=== PATIENT | male | born 1925 | race Caucasian/White ===

== ENCOUNTER 2017-06-23 00:27 | Observation (INO) | payer MEDICARE, OTHER ==
[2017-06-23] MEDS ORDERED: Sodium Chloride 0.9% 1000 ML 1,000 ML IV STA (00:55)
--- NOTE | 2017-06-23 01:00 | ERPHSYRPT ---
- History of Present Illness Time Seen by Provider: 06/23/17 00:58 Historian: patient, EMS Exam Limitations: no limitations Patient Subjective Stated Complaint: pt c/o pain in rt abd, cramping in nature that began tonight while pt was in bed. Triage Nursing Assessment: pt alert and oriented, asnwers questions approp. pt arrive per ambulance, transfer to stretcher with assist of 3. respirations nonlabored with lungs cta. abd soft and nontender to light palpation. bowel sounds present in all 4 quads. +3 edema noted to bilat lower legs and feet. Physician History: pt c/o pain in rt abd, cramping in nature that began tonight while pt was in bed. Timing/Duration: today Activities at Onset: none Quality: cramping Abdominal Pain Onset Location: RUQ Pain Radiation: no radiation Severity of Pain-Max: mild Severity of Pain-Current: mild Modifying Factors: Improves With: nothing Associated Symptoms: denies symptoms Allergies/Adverse Reactions: bacitracin [From Neosporin ([id number])] Allergy (Verified 06/23/17 00:44) donepezil [From Aricept] Allergy (Verified 06/23/17 00:44) memantine [From Namenda] Allergy (Verified 06/23/17 00:44) neomycin [From Neosporin ([id number])] Allergy (Verified 06/23/17 00:44) polymyxin B [From Neosporin ([id number])] Allergy (Verified 06/23/17 00:44) Home Medications: Amlodipine Besylate 5 mg [Norvasc 5 mg] 5 mg PO DAILY 06/23/17 [History] Aspirin EC 81 mg [Ecotrin 81 mg] 81 mg PO DAILY 06/23/17 [History] B1,B2,B3,B6,B12/Dexpan/Zn/Antwan [Eldertonic] 1 tbls PO DAILY 06/23/17 [History] Divalproex Sodium [Depakote] 125 mg PO BID 06/23/17 [History] Gabapentin 600 mg PO HS 06/23/17 [History] Latanoprost [Xalatan] 1 drop OP HS 06/23/17 [History] Levothyroxine Sodium 75 Mcg [Synthroid 75 Mcg] 75 mcg PO HS 06/23/17 [ History] Mirtazapine 7.5 mg PO HS 06/23/17 [History] Rivastigmine Tartrate [Rivastigmine] 1.5 mg PO DAILY 06/23/17 [History] Ropinirole HCl 1 mg PO BID 06/23/17 [History] Timolol Maleate/Dorzolam HCl [Cosopt Ophthalmic 10 ml] 1 drop OP BID [History] Hx Tetanus, Diphtheria Vaccination/Date Given: Yes Hx Influenza Vaccination/Date Given: Yes Hx Pneumococcal Vaccination/Date Given: Yes Immunizations Up to Date: Yes - Review of Systems Constitutional: No Fever, No Chills Eyes: No Symptoms Ears, Nose, & Throat: No Symptoms Respiratory: No Cough, No Dyspnea Cardiac: No Chest Pain, No Edema, No Syncope Abdominal/Gastrointestinal: Abdominal Pain, No Nausea, No Vomiting, No Diarrhea Genitourinary Symptoms: No Dysuria Musculoskeletal: No Back Pain, No Neck Pain Skin: No Rash Neurological: No Dizziness, No Focal Weakness, No Sensory Changes Psychological: No Symptoms Endocrine: No Symptoms All Other Systems: Reviewed and Negative - Past Medical History Pertinent Past Medical History: Yes Neurological History: Dementia ENT History: Glaucoma Cardiac History: High Cholesterol, Hypertension Endocrine Medical History: Hypothyroidism GI Medical History: GERD - Past Surgical History Past Surgical History: Yes Musculoskeletal: Orthopedic Surgery Male Surgical History: Prostate Surgery, Vasectomy Other Surgical History: rib removal, skin ca removal - Social History Smoking Status: Former smoker Exposure to second hand smoke: No Drug Use: none Patient Lives Alone: No - Nursing Vital Signs Nursing Vital Signs: Initial Vital Signs Temperature 98.5 F 06/23/17 00:34 Pulse Rate 74 06/23/17 00:34 Respiratory Rate 18 06/23/17 00:34 Blood Pressure 172/82 06/23/17 00:34 O2 Sat by Pulse Oximetry 97 06/23/17 00:34 Pain Scale Pain Intensity 8 - Physical Exam General Appearance: no apparent distress, alert Eye Exam: PERRL/EOMI, eyes nml inspection Ears, Nose, Throat Exam: normal ENT inspection, pharynx normal, moist mucous membranes Neck Exam: normal inspection, non-tender, supple, full range of motion Respiratory Exam: normal breath sounds, lungs clear, No respiratory distress Cardiovascular Exam: regular rate/rhythm, normal heart sounds Gastrointestinal/Abdomen Exam: soft, normal bowel sounds, tenderness (Right upper quadrant.), No mass Back Exam: normal inspection, normal range of motion, No CVA tenderness, No vertebral tenderness Extremity Exam: normal inspection, normal range of motion, pelvis stable Neurologic Exam: alert, oriented x 3, cooperative, normal mood/affect, nml cerebellar function, sensation nml, No motor deficits Skin Exam: normal color, warm, dry SpO2: 97 Oxygen Delivery: Room Air - Course Nursing assessment & vital signs reviewed: Yes - CT Exams Abdomen/Pelvis CT Interpretation: Tele-radiologist Report Ordered Tests: Active Orders 24 hr Category Date Time Status ABDOMEN AND PELVIS W/0 CONTRAS [CT] Stat Exams 06/23/17 00:56 Taken AMYLASE Stat Lab 06/23/17 00:30 Completed CBC W DIFF Stat Lab 06/23/17 00:30 Completed CMP Stat Lab 06/23/17 00:30 Completed LIPASE Stat Lab 06/23/17 00:30 Completed UA W/RFX UR CULTURE Stat Lab 06/23/17 00:55 Ordered Medication Summary Discontinued Medications Generic Name Dose Route Start Last Admin Trade Name Freq PRN Reason Stop Dose Admin Sodium Chloride 1,000 mls @ 999 mls/hr 06/23/17 00:55 06/23/17 01:08 Sodium Chloride 0.9% 1000 Ml IV 06/23/17 01:55 999 mls/hr .Q1H1M STA Administration Sodium Chloride Confirm 06/23/17 01:07 Sodium Chloride 0.9% 1000 Ml Administered 06/23/17 01:08 Dose 1,000 mls @ ud .ROUTE .[facility] Lab/Rad Data: Laboratory Result Diagrams 06/23/17 00:30 06/23/17 00:30 Laboratory Results 06/23/17 06/23/17 Range/Units 00:30 00:30 WBC 6.4 (4.0-10.5) K/mm3 RBC 4.37 (4.1-5.6) M/mm3 Hgb 13.5 (12.5-18.0) gm/dl Hct 43.0 (42-50) % MCV 98.4 (78-100) fl MCH 30.9 (26-32) pg MCHC 31.4 L (32-36) g/dl RDW 13.8 (11.5-14.0) % Plt Count 253 (150-450) K/mm3 MPV 10.1 H (6-9.5) fl Gran % 43.6 (36.0-66.0) % Lymphocytes % 41.9 (24.0-44.0) % Monocytes % 11.8 (0.0-12.0) % Eosinophils % 2.5 (0.00-5.0) % Basophils % 0.2 (0.0-0.4) % Basophils # 0.01 (0-0.4) Sodium 144 (136-145) mEq/L Potassium 3.7 (3.5-5.1) mEq/L Chloride 106 (98-107) mEq/L Carbon Dioxide 27.0 (21-32) mEq/L Anion Gap 14.8 (5-15) MEQ/L BUN 20 (9-20) mg/dL Creatinine 1.20 (0.55-1.30) mg/dl Estimated GFR > 60 ML/MIN Glucose 140 H (70-110) MG/DL Calcium 9.6 (8.5-10.1) mg/dL Total Bilirubin 0.50 (0.2-1.0) mg/dL AST 19 (15-37) U/L ALT 25 (12-78) U/L Alkaline Phosphatase 75 (46-116) U/L Serum Total Protein 8.6 H (6.4-8.2) gm/dL Albumin 4.0 (3.4-5.0) g/dL Amylase 96 (25-115) U/L Lipase 98 (73-393) U/L - Progress Progress: improved Discussed with Dr.: Nalini Cook Will see patient in: hospital (observation) Counseled pt/family regarding: lab results, diagnosis, need for follow-up, rad results - Departure Time of Disposition: 02:05 Departure Disposition: Observation Clinical Impression: Right distal ureteral calculus Condition: Fair Critical Care Time: Yes Critical Care Time(excluding separately billable procedures): 30-74 minutes Referrals: AYAN CABRALES [Primary Care Provider] -
[2017-06-23 01:03] LABS: BASOPHIL % 0.2 % (0.0-0.4); Basophil (Absolute #) 0.01 (0-0.4); Eosinophil % 2.5 % (0.00-5.0); Eosinophil (Absolute #) 0.16 (0-0.5); Granulocyte Absolute (ANC) 2.81 (1.4-6.9); Granulocytes % 43.6 % (36.0-66.0); Hemoglobin 13.5 gm/dl (12.5-18.0); Lymphocytes % 41.9 % (24.0-44.0); Mean Cell Volume 98.4 fl (78-100); Mean Corpuscular Hemoglobin 30.9 pg (26-32); Mean Corpuscular Hgb Concent. 31.4 g/dl (32-36); Mean Platelet Volume 10.1 fl (6-9.5); Monocyte (Absolute #) 0.76 (0.0-1.3); Monocytes % 11.8 % (0.0-12.0); Platelet Count 253 K/mm3 (150-450); Red Blood Count 4.37 M/mm3 (4.1-5.6); Red Cell Distribution Width 13.8 % (11.5-14.0); White Blood Count 6.4 K/mm3 (4.0-10.5)
[2017-06-23] MEDS ORDERED: Sodium Chloride 0.9% 1000 ML 2,000 ML ONE (01:07)
[2017-06-23 01:11] LABS: ALKALINE PHOSPHATASE 75 U/L (46-116); AMYLASE 96 U/L (25-115); ANION GAP 14.8 MEQ/L (5-15); BLOOD UREA NITROGEN 20 mg/dL (9-20); CHLORIDE 106 mEq/L (98-107); Calcium 9.6 mg/dL (8.5-10.1); EST GLOMERULAR FILTRATION RATE > 60 ML/MIN; Glucose 140 MG/DL (70-110); LIPASE 98 U/L (73-393); Potassium 3.7 mEq/L (3.5-5.1); SGOT/AST 19 U/L (15-37); SGPT/ALT 25 U/L (12-78); SODIUM 144 mEq/L (136-145); Total Protein 8.6 gm/dL (6.4-8.2)
[2017-06-23] MEDS ORDERED: Zofran 4 MG/2 ML VIAL IV PRN (02:49)
[2017-06-23] MEDS ORDERED: MORPHINE SULFATE 2 MG INJ IV PRN (02:49)
[2017-06-23] MEDS ORDERED: Sodium Chloride 0.9% 1000 ML 1,000 ML IV SCH (02:49)
[2017-06-23 04:26] LABS: Appearance CLEAR (CLEAR); Bilirubin NEGATIVE (NEGATIVE); Blood 50 Ery/ul (0-5); Glucose 100 mg/dL (NEGATIVE); Ketones NEGATIVE (NEGATIVE); Leukocyte Esterase NEGATIVE (NEGATIVE); Nitrite NEGATIVE (NEGATIVE); Protein,Urine Dip NEGATIVE (Negative); Urobilinogen NORMAL mg/dL (0-1)
[2017-06-23 04:27] LABS: Amourphous Crystal MODERATE /HPF (NEGATIVE); Bacteria MODERATE /HPF (NEGATIVE); Epithelial Cells FEW /HPF (FEW); WBC 0-2 /HPF (0-5)
--- NOTE | 2017-06-23 08:17 | XRAY ---
Indication: Right upper quadrant abdominal pain. Multiple contiguous axial images obtained through the abdomen and pelvis without contrast as ordered. Comparison: None Lung bases are hyperinflated with scattered fibrosis/scarring, scattered subsegmental atelectasis, right base pleural thickening, and right base bleb. Small left base effusion with adjacent dependent atelectasis. Heart is not enlarged. Stomach is moderately fluid distended. Noncontrasted bowel loops appear nonobstructed. There is moderate scattered colonic fecal debris throughout as well as scattered colonic diverticulosis. Normal air-filled appendix. No free fluid/air. 2 mm right UVJ calculus. Proximal right ureter is mildly prominent and there is moderate hydronephrosis with minimal perinephric stranding consistent with obstructive uropathy. Additional punctate right renal calculus and incidental 1 cm left mid renal cortical cyst. Remaining liver, gallbladder, pancreas, spleen, adrenal glands, kidneys, left ureter, and urinary bladder appear unremarkable for noncontrast exam. Moderate/extensive scattered vascular calcifications. No AAA. Osseous structures intact with moderate degenerative changes throughout the spine. Impression: 1. 2 mm right UVJ calculus producing partial obstruction. Additional right renal micro-calculus and incidental left renal cyst. 2. Fecal stasis without obstruction. Colonic diverticulosis. 3. Small left lung base pleural effusion. Comment: Preliminary interpretation was made by [facility]. No discrepancy. CTDI 19.41
--- NOTE | 2017-06-23 10:49 | PCM.DCORD ---
- Discharge Discharge Date: 06/23/17 Condition: Good Prescriptions: Continue Latanoprost [Xalatan] 1 drop OP HS Ropinirole HCl 1 mg PO BID Mirtazapine 7.5 mg PO HS Rivastigmine Tartrate [Rivastigmine] 1.5 mg PO DAILY Gabapentin 600 mg PO HS Levothyroxine Sodium 75 Mcg [Synthroid 75 Mcg] 75 mcg PO HS B1,B2,B3,B6,B12/Dexpan/Zn/Antwan [Eldertonic Elixir] 1 tbls PO DAILY Timolol Maleate/Dorzolam HCl [Cosopt Ophthalmic 10 ml] 1 drop OP BID Divalproex Sodium [Depakote] 250 mg PO BID Aspirin EC 81 mg [Ecotrin 81 mg] 81 mg PO DAILY Amlodipine Besylate 5 mg [Norvasc 5 mg] 5 mg PO DAILY Polysorbate 80/Glycerin [Refresh Dry Eye Therapy Drops] 1 each OP DAILY Triamcinolone 0.1% Cream [Kenalog 0.1% Cream 15 gm] 1 gm TP BID Follow up with: AYAN CABRALES [Primary Care Provider] -
[2017-06-23 12:10] VITALS: BP 148/77; PULSE 72; O2SAT 96
--- NOTE | 2017-06-26 14:39 | SSS ---
DISCHARGE DIAGNOSIS: NEPHROLITHIASIS RIGHT KIDNEY. HISTORY: The patient is an 89 year-old white male patient who is a [facility] of a local [facility] who was awoken in the night with crampy pain in the right side of his abdomen mostly in the right flank area radiating down to the right groin area. The patient was evaluated in the emergency room and found to have a kidney stone of 2 mm size in the right ureteropelvic junction. The patient was admitted to the hospital for IV fluids and pain control. The patient does report no previous history of kidney stones. PAST MEDICAL HISTORY: His medical history is otherwise significant for glaucoma, hypertension, hyperlipidemia, hyperthyroid, mild dementia. He has had vasectomy, prostate surgery, skin cancer removed and rib removed. PHYSICAL EXAMINATION: Revealed a well nourished, well developed 89 year-old white male patient apparently in no distress. HEENT: Normocephalic, atraumatic. Pupils equal round reactive to light. Extraocular movements intact. Oropharynx is pink and moist. NECK: Supple without lymphadenopathy, thyromegaly or JVD. CHEST: Clear to auscultation with good air movement bilaterally. HEART: Regular rate and rhythm without murmurs, rubs or gallops. ABDOMEN: Soft, nontender, nondistended without palpable masses. EXTREMITIES: Without clubbing, cyanosis or edema. NEUROLOGIC: The patient is alert and oriented x3. No focal deficits were noted. HOME MEDICATIONS: At the fci included: Amlodipine 5 mg a day, aspirin 81 mg a day, Depakote 125 mg b.i.d., gabapentin 600 mg at night, levothyroxine 75 mcg daily, Mirapex 7.5 mg at night, rivastigmine 1.5 mg a day, ropinirole 1 mg b.i.d. ALLERGIES: NEOSPORINE. HOSPITAL COURSE: The patient was admitted to the [facility] with IV fluids. Apparently the stone had passed in the bladder. He is currently pain free. He reports he is having no problems presently and would like to go back home. DISCHARGE PLAN: The patient will be discharged back to the [facility]. He will be given prescription for [place] 5/325 mg every four hours PRN for pain should he have recurrence of the pain from the stone moving. He will continue the use of his usual medications at the f[facility] and have follow up to see his primary care physician in a week.
== END 2017-06-23 12:40 | disposition home or self-care (01) ==
LOC: ED 00:27 → MED SURG 02:43
PROVIDERS: ADMIT Family Medicine; ATTEND Family Medicine
DX: N20.0 Calculus of kidney (principal); Z79.899 Other long term (current) drug therapy
CPT/HCPCS: 36415; 74176; 80053; 81000; 82150; 83690; 85025; 87086; 96360; 99285; G0378

== ENCOUNTER 2017-08-18 08:13 | Emergency (ER) | payer MEDICARE ==
--- NOTE | 2017-08-18 08:42 | ERPHSYRPT ---
- History of Present Illness Time Seen by Provider: 08/18/17 08:31 Source: patient Exam Limitations: no limitations Patient Subjective Stated Complaint: ems and assisted living staff report that patient c/o this am of legs being cold and unable to walk. refused to take medicines this am Triage Nursing Assessment: to room per ems cot. skin w/d, color normal, resp easy. legs and feet warm to touch. good pedal pulses. denies pain or injury. Physician History: The patient is an 89-year-old male arriving by ambulance from assisted living at an local skilled nursing where he had complained that his legs were cold and painful this morning. He has known lower extremity neuropathy. He tells me that he was upset with the nursing staff at the skilled nursing because he wanted to have the temperature turned up and they will wouldn't do it for him. He also states that he couldn't move his legs for a well this morning. He refused to take his morning medicines per skilled nursing staff. Now that he is here in the ER, he is feeling better with warm blanket. He wants to tell me all the details of this past life. It is hard to redirect him to why he is coming to the ER today. His past medical history significant for mild dementia, hypothyroidism, neuropathy, and hypertension. We have called his daughter in [place] who has power of electrical high tension tester and discussed these issues with her. The POA prefers to give him some nonnarcotic pain medicine, no lab draws, and return patient to skilled nursing. Timing/Duration: today Severity: mild Modifying Factors: Improves With: nothing Associated Symptoms: denies symptoms Allergies/Adverse Reactions: bacitracin [From Neosporin ([id number])] Allergy (Verified 06/23/17 00:44) donepezil [From Aricept] Allergy (Verified 06/23/17 00:44) memantine [From Namenda] Allergy (Verified 06/23/17 00:44) neomycin [From Neosporin ([id number])] Allergy (Verified 06/23/17 00:44) polymyxin B [From Neosporin ([id number])] Allergy (Verified 06/23/17 00:44) Home Medications: Amlodipine Besylate 5 mg [Norvasc 5 mg] 5 mg PO DAILY 06/23/17 [History] Aspirin EC 81 mg [Ecotrin 81 mg] 81 mg PO DAILY 06/23/17 [History] B1,B2,B3,B6,B12/Dexpan/Zn/Antwan [Eldertonic Elixir] 1 tbls PO DAILY 06/23/17 [ History] Divalproex Sodium [Depakote] 250 mg PO BID 06/23/17 [History] Gabapentin 600 mg PO HS 06/23/17 [History] Latanoprost [Xalatan] 1 drop OP HS 06/23/17 [History] Levothyroxine Sodium 75 Mcg [Synthroid 75 Mcg] 75 mcg PO HS 06/23/17 [ History] Mirtazapine 7.5 mg PO HS 06/23/17 [History] Polysorbate 80/Glycerin [Refresh Dry Eye Therapy Drops] 1 each OP DAILY [History] Rivastigmine Tartrate [Rivastigmine] 1.5 mg PO DAILY 06/23/17 [History] Ropinirole HCl 1 mg PO BID 06/23/17 [History] Timolol Maleate/Dorzolam HCl [Cosopt Ophthalmic 10 ml] 1 drop OP BID [History] Triamcinolone 0.1% Cream [Kenalog 0.1% Cream 15 gm] 1 gm TP BID 06/23/17 [ History] Hx Tetanus, Diphtheria Vaccination/Date Given: (unsure) Hx Influenza Vaccination/Date Given: Yes Hx Pneumococcal Vaccination/Date Given: Yes Immunizations Up to Date: No - Review of Systems Constitutional: No Fever, No Chills Eyes: No Symptoms Ears, Nose, & Throat: No Symptoms Respiratory: No Cough, No Dyspnea Cardiac: No Chest Pain, No Edema, No Syncope Abdominal/Gastrointestinal: No Abdominal Pain, No Nausea, No Vomiting, No Diarrhea Genitourinary Symptoms: No Dysuria Musculoskeletal: No Back Pain, No Neck Pain Skin: No Rash Neurological: Other (leg pain) Psychological: No Symptoms Endocrine: No Symptoms Hematologic/Lymphatic: No Symptoms Immunological/Allergic: No Symptoms All Other Systems: Reviewed and Negative - Past Medical History Pertinent Past Medical History: Yes Neurological History: Dementia ENT History: Glaucoma Cardiac History: High Cholesterol, Hypertension Respiratory History: No Pertinent History Endocrine Medical History: Hypothyroidism Musculoskeletal History: No Pertinent History GI Medical History: GERD History: No Pertinent History Psycho-Social History: No Pertinent History Male Reproductive Disorders: No Pertinent History - Past Surgical History Past Surgical History: Yes Neuro Surgical History: No Pertinent History Cardiac: No Pertinent History Respiratory: No Pertinent History Gastrointestinal: No Pertinent History Musculoskeletal: Orthopedic Surgery Male Surgical History: Prostate Surgery, Vasectomy Other Surgical History: rib removal, skin ca removal - Social History Smoking Status: Former smoker Exposure to second hand smoke: No Drug Use: none Patient Lives Alone: No - Nursing Vital Signs Nursing Vital Signs: Initial Vital Signs Temperature 98 F 08/18/17 08:14 Pulse Rate 62 08/18/17 08:14 Respiratory Rate 16 08/18/17 08:14 Blood Pressure 173/97 08/18/17 08:14 O2 Sat by Pulse Oximetry 94 L 08/18/17 08:14 Pain Scale Pain Intensity 0 - Physical Exam General Appearance: no apparent distress, alert Eye Exam: PERRL/EOMI, eyes nml inspection Ears, Nose, Throat Exam: normal ENT inspection, TMs normal, pharynx normal, moist mucous membranes Neck Exam: normal inspection, non-tender, supple, full range of motion Respiratory Exam: normal breath sounds, lungs clear, No respiratory distress Cardiovascular Exam: regular rate/rhythm, normal heart sounds, normal peripheral pulses Gastrointestinal/Abdomen Exam: soft, normal bowel sounds, No tenderness, No mass Rectal Exam: not done Back Exam: normal inspection, normal range of motion, No CVA tenderness, No vertebral tenderness Extremity Exam: limited range of motion Neurologic Exam: alert, oriented x 3, cooperative, normal mood/affect, nml cerebellar function, nml station & gait, sensation nml, No motor deficits Skin Exam: other (bilateral lower legs with stasis dermatitis.) SpO2 Interpretation: normal SpO2: 94 Oxygen Delivery: Room Air - Departure Time of Disposition: 08:51 Departure Disposition: Home Clinical Impression: Peripheral neuropathy Condition: Stable Critical Care Time: No Referrals: AYAN CABRALES [Primary Care Provider] -
[2017-08-18] MEDS ORDERED: TYLENOL 325 MG ONE (08:54)
[2017-08-18] MEDS ORDERED: TYLENOL 325 MG PO STA (08:54)
[2017-08-18 09:10] VITALS: BP 165/70; PULSE 60; O2SAT 97
== END 2017-08-18 09:40 | disposition home or self-care (01) ==
LOC: ED 08:13
DX: G62.9 Polyneuropathy, unspecified (principal); M79.605 Pain in left leg; M79.604 Pain in right leg; Z79.899 Other long term (current) drug therapy
CPT/HCPCS: 99281; A9270-GY